=== PATIENT | female | born 1980 | race Caucasian/White ===

== ENCOUNTER 2018-06-14 20:00 | Inpatient (IN) | payer BC ==
[2018-06-14] MEDS ORDERED: EPSOM SALT 454 GM TP PRN (20:58)
[2018-06-14] MEDS ORDERED: LIDOCAINE 1% 300 MG/30 ML SDV SC PRN (20:58)
[2018-06-14] MEDS ORDERED: OLIVE OIL 118 ML BTL MISC PRN (20:58)
[2018-06-14] MEDS ORDERED: OXYTOCIN/RINGERS LACTATE 1,000 ML IV PRN (20:58)
[2018-06-14] MEDS ORDERED: IBUPROFEN 600 MG TAB PO PRN (20:58)
[2018-06-14] MEDS ORDERED: TERBUTALINE SULFATE 1 MG/ML VIAL IV PRN (20:58)
[2018-06-14] MEDS ORDERED: MISOPROSTOL 200 MCG TAB PO PRN (20:58)
[2018-06-14] MEDS ORDERED: AMMONIA AROMATIC 1 EACH AMP IH PRN (20:58)
[2018-06-14] MEDS ORDERED: PENICILLIN G POTASSIUM 5,000,000 UNIT in D5W 150 ML IV ONE (21:00)
[2018-06-14] MEDS ORDERED: OLIVE OIL 118 ML BTL MISC ONE (21:21)
[2018-06-14] MEDS ORDERED: LIDOCAINE 1% 300 MG/30 ML SDV ONE (21:21)
[2018-06-14] MEDS ORDERED: OXYTOCIN 10 UNIT/ML VIAL ONE (21:22)
[2018-06-14] MEDS ORDERED: AMMONIA AROMATIC 1 EACH AMP IH ONE (21:22)
[2018-06-14] MEDS ORDERED: MISOPROSTOL 200 MCG TAB ONE (21:22)
[2018-06-14] MEDS ORDERED: TERBUTALINE SULFATE 1 MG/ML VIAL ONE (21:22)
[2018-06-14] MEDS: MISOPROSTOL 50 MCG CAP PO SCH (21:25)
[2018-06-14 21:56] LABS: PLATELET COUNT 188 10^3/uL (150-400)
--- NOTE | 2018-06-14 22:12 | PDGENHP ---
History and Physical History and Physical: CARE: [facility] HPI: Patient is a 37 yo G 1 P 0 @ 41.2 weeks who presents to L&D for induction of labor, had cook catheter placed this morning in office. EDC: 06/05/18 which is based on LMP: 08/30/18 which is known and consistent with Ultrasound at 8 weeks. Her is complicated by: AMA, normal level 2 and NIPT Review of Systems: Constitutional: Denies any fever, chills, or fatigue HEENT: denies any visual changes, difficulty swallowing, hearing loss Cardiovascular: Denies any chest pain, palpitations, leg swelling Respiratory: denies any cough, wheezing, or shortness of breathe GI: Denies any nausea, vomiting, diarrhea, constipation : denies any dysuria, urgency, frequency, vaginal bleeding Musculoskeletal: denies any muscle or bone pain Skin: denies any rashes Neuro: denies any headache, seizures, lightheadedness, dizziness, or loss of consciousness Psychiatric: denies any depression, anxiety, or SI/HI thoughts HISTORY: Previous OB history: or 6#12oz girl in 2017 Social history: , athlete Family history: non-contributory Past medical history: denies Past surgical history: cholecystectomy 2010, oral surgery 2003 Medications: PNV, probiotic Allergies (list reaction): NKDA LABS: Rh: A+ ABS: Neg Rubella: Immune HbsAg: NR HIV: NR VDRL: NR 1hr: 125 GC: Neg Chlamydia: Neg Pap: Normal GBS: pos BMI: (prepreg) 20 PHYSICAL EXAM: Constitutional: WN, A&Ox3 HEENT: normocephalic atraumatic, supple Heart: RRR, no murmur Chest: CTA-B Skin: warm, dry, intact Abdomen: Soft, nontender, gravid SVE: 1/75/-2 in office today Extremities: trace edema, negative homans sign Neuro: grossly normal Psych: normal affect assessment: FHT baseline 130, +accels, no decels, moderate variability Contractions: toco q 5-10 min Assessment: 1) 37 yo G 1 P 0 with IUP@ 41 weeks and 2 days 2) spontaneous labor 3) GBS pos 4) Cat 1 FHR tracing Plan: 1) Admit to L&D 2) Labor Induction 3) Antibiotic therapy for GBS 4) Anticipate
[2018-06-15] MEDS: MISOPROSTOL 50 MCG CAP PO SCH ×2 (01:28→05:26)
--- NOTE | 2018-06-15 07:57 | OBPROG ---
Labor Progress Note Assessment/Plan: Assessment: 41 week induction of labor Plan: accupuncture pitocin augmentation 06/15/18 07:51 Subjective/Intrapartum Course: 06/15/18 07:54 Pt states bulb is in vagina. Bulb deflated and removed. pt is 3/90/-1. talking and smiling with contractions. movie producer at bedside. Objective: 06/14/18 21:40 Patient ABO/Rh A POSITIVE 06/14/18 21:40 VSS, afebrile - SVE Dilation (cm): 3 Effacement (%): 90 Station: -1 Membranes: Intact - Contraction Pattern Assessment Current Contraction Pattern: Irregular - FHR Assessment Joseph FHR (bpm): 130 FHR Pattern Variability: Moderate FHR Category: 1 Oxytocin Orders Assessment - Pre-Induction/Augmentation Assessment Gestational Age: 41 week(s) and 2 day(s) ICD10 Worksheet Patient Problems: Problems Problem Status Onset Encounter for induction of labor Acute with 41 completed weeks gestation Acute - ICD10 Problem Qualifiers (1) Encounter for induction of labor
--- NOTE | 2018-06-15 08:29 | SOAPPROG ---
SOAP Progress Note Assessment/Plan: Assessment: Digna is talking comfortably, ambulating, and in good spirits. 3cm dilated. 90% effaced. 7 min apart last night, every few min now Plan: Stim labor. 06/15/18 08:25 Objective: DILATED TO 3 BEFORE ACUPUNCTURE. AFTER ACUPUNCTURE, GROUT MACHINE TENDER CHECKED CERVIX - DILATED TO 5.5 OUTER OS, 2.5 INNER OS Laboratory Results 06/14/18 21:40 - Time Spent With Patient Time Spent With Patient: UB32 FOR BACK LABOR AND POSITION UB67 POSITION LI4--SP6 ESTIM 2/200 JOSÉ TO ENCOURAGE LABOR PM08--CJ9 LOWER UTERUS (ESTIM 2/200) DU YIN - ENHANCE LABOR EAR: UT, POSTERIOR PITUITARY, ENDOCRINE ST36 - DIGESTION, ENERGY GB21 - DESCEND QI NEEDLE RETENTION 1.5 HOUR ICD10 Worksheet Patient Problems: Problems Problem Status Onset Encounter for induction of labor Acute with 41 completed weeks gestation Acute
--- NOTE | 2018-06-15 09:00 | OBPROG ---
Labor Progress Note Assessment/Plan: Assessment: 37yo with IUP@ 41-3wks PD IOL GBS + Cat 1 FHR tracing Plan: reassess at approx 10am cytotec 25mcg or replace cook with pitocin pain management PRN Subjective/Intrapartum Course: 06/15/18 07:54 Pt states bulb is in vagina. Bulb deflated and removed. pt is 3/90/-1. talking and smiling with contractions. cereal miller at bedside. 06/15/18 09:00 Pt doing ok- having acupuncture at this time. She denies any pain or contractions. Denies any LOF, having small amount of bloody show since balloon out. FOB and cereal miller @BS. Objective: 06/14/18 21:40 Patient ABO/Rh A POSITIVE 06/14/18 21:40 - SVE Dilation (cm): 3 Effacement (%): 80 Station: -2 Membranes: Intact - Contraction Pattern Assessment Current Contraction Pattern: Irregular Oxytocin Orders Assessment - Pre-Induction/Augmentation Assessment Gestational Age: 41 week(s) and 2 day(s) ICD10 Worksheet Patient Problems: Problems Problem Status Onset Encounter for induction of labor Acute with 41 completed weeks gestation Acute
[2018-06-15] MEDS ORDERED: PENICILLIN G POTASSIUM 5,000,000 UNIT in D5W 150 ML IV ONE (09:30)
[2018-06-15] MEDS ORDERED: OXYTOCIN/RINGERS LACTATE 500 ML IV SCH ×2 (11:00)
[2018-06-15] MEDS: LR 1,000 ML IV PRN ×2 (11:31→21:01)
--- NOTE | 2018-06-15 14:06 | OBPROG ---
Labor Progress Note Assessment/Plan: Assessment: 37yo with IUP@ 41-3wks PD IOL GBS + Cat 1 FHR tracing Plan: cook placed with 60mL in uterine balllon will start pitocin at this time reassess 2-4hr/PRN pain management per pt request 06/15/18 10:45 Subjective/Intrapartum Course: 06/15/18 07:54 Pt states bulb is in vagina. Bulb deflated and removed. pt is 3/-1. talking and smiling with contractions. land reclamation specialist at bedside. 06/15/18 09:00 Pt doing ok- having acupuncture at this time. She denies any pain or contractions. Denies any LOF, having small amount of bloody show since balloon out. FOB and land reclamation specialist @BS. Objective: 06/14/18 21:40 Patient ABO/Rh A POSITIVE 06/14/18 21:40 - SVE Dilation (cm): 3 Effacement (%): 80 Station: -2 Membranes: Intact - Contraction Pattern Assessment Current Contraction Pattern: Irregular - Procedures Non-surgical Procedures: Other (Specify) (cook placed with 60mL in uterine balloon, ) Oxytocin Orders Assessment - Pre-Induction/Augmentation Assessment Gestational Age: 41 week(s) and 2 day(s) ICD10 Worksheet Patient Problems: Problems Problem Status Onset Encounter for induction of labor Acute with 41 completed weeks gestation Acute
--- NOTE | 2018-06-15 14:06 | OBPROG ---
Labor Progress Note Assessment/Plan: Assessment: 37yo with IUP@ 41-3wks PD IOL GBS + Cat 1 FHR tracing pitocin IOL Plan: cont pitocin consider hydrotherapy pain management PRN reassess PRN Subjective/Intrapartum Course: 06/15/18 07:54 Pt states bulb is in vagina. Bulb deflated and removed. pt is 3/90/-1. talking and smiling with contractions. fancy packer at bedside. 06/15/18 09:00 Pt doing ok- having acupuncture at this time. She denies any pain or contractions. Denies any LOF, having small amount of bloody show since balloon out. FOB and fancy packer @BS. 06/15/18 14:10 Pt doing well, she is breathing through contractions. she is ambulating in halls with fancy packer and her mom. she declines any pain relief at this time. Objective: 06/14/18 21:40 Patient ABO/Rh A POSITIVE 06/14/18 21:40 - SVE Membranes: Intact - Contraction Pattern Assessment Current Contraction Pattern: Irregular - FHR Assessment Joseph FHR (bpm): 140 FHR Pattern Variability: Moderate FHR Category: 1 - Procedures Non-surgical Procedures: Other (Specify) (cook placed with 60mL in uterine balloon, ) Oxytocin Orders Assessment - Pre-Induction/Augmentation Assessment Gestational Age: 41 week(s) and 2 day(s) ICD10 Worksheet Patient Problems: Problems Problem Status Onset Encounter for induction of labor Acute with 41 completed weeks gestation Acute
[2018-06-15] MEDS: PENICILLIN G POTASSIUM 2,500,000 UNIT in D5W 150 ML IV SCH ×3 (15:29→23:45)
[2018-06-15] MEDS ORDERED: BUPIVACAINE 0.25% 10 ML SDV ONE ×3 (16:18→21:54)
[2018-06-15] MEDS ORDERED: fentaNYL 2MCG/ML/BUP 0.1% RTU 100 ML BAG EP ONE (16:54)
[2018-06-15] MEDS ORDERED: fentaNYL 2MCG/ML/BUP 0.1% RTU 100 ML EP SCH (17:00)
--- NOTE | 2018-06-15 17:38 | PDANEPAE ---
ANE Past Medical History - Cardiovascular History Hx Hypertension: No Hx Arrhythmias: No Hx Chest Pain: No - Pulmonary History Hx COPD: No Hx Asthma/Reactive Airway Disease: No Hx Recent Upper Respiratory Infection: No Hx Sleep Apnea: No - Neurologic History Hx Cerebrovascular Accident: No - Endocrine History Hx Diabetes: No - Renal History Hx Renal Disorders: No - Liver History Hx Hepatic Disorders: No - Neurological & Psychiatric Hx Hx Neurological and Psychiatric Disorders: No - Cancer History Hx Cancer: No - Congenital Disorder History Hx Congenital Disorders: No ANE Review of Systems Review of Systems: ANE Patient History - Allergies Allergies/Adverse Reactions: No Known Allergies Allergy (Unverified 06/14/18 20:56) - Home Medications Home Medications: [place] 3 500 Softgel 06/14/18 [Last Taken 06/13/18] Dha 1 tab PO DAILY 06/14/18 [Last Taken 06/13/18] Choline Citrate 06/15/18 [Last Taken 06/13/18] FOLIC ACID 06/15/18 [Last Taken 06/13/18] - Smoking Hx Smoking Status: Never smoked ANE Labs/Vital Signs - Labs Result Diagrams: 06/14/18 21:40 - Vital Signs Height: 170.18 cm Weight: 70.307 kg ANE Physical Exam - Airway Mallampati Score: Class 2 Mouth exam: normal dental/mouth exam - Pulmonary Pulmonary: no respiratory distress, no rales or rhonchi, clear to auscultation - Cardiovascular Cardiovascular: regular rate and rhythym, no murmur, rub, or gallop - ASA Status ASA Status: II, E ANE Anesthesia Plan Anesthesia Plan: epidural
--- NOTE | 2018-06-15 17:58 | OBPROG ---
Labor Progress Note Assessment/Plan: Assessment: 37yo with IUP@ 41-3wks PD IOL GBS + Cat 1 FHR tracing pitocin IOL Plan: cont pitocin pt requesting LOS for pain relief Subjective/Intrapartum Course: 06/15/18 07:54 Pt states bulb is in vagina. Bulb deflated and removed. pt is 3/90/-1. talking and smiling with contractions. sheeter operator at bedside. 06/15/18 09:00 Pt doing ok- having acupuncture at this time. She denies any pain or contractions. Denies any LOF, having small amount of bloody show since balloon out. FOB and sheeter operator @BS. 06/15/18 14:10 Pt doing well, she is breathing through contractions. she is ambulating in halls with sheeter operator and her mom. she declines any pain relief at this time. 06/15/18 16:10 Pt doing well, she is breathing through contractions. She is requesting LOS for pain relief. sheeter operator and Family @ BS, supportive. Objective: 06/14/18 21:40 Patient ABO/Rh A POSITIVE 06/14/18 21:40 - SVE Dilation (cm): 5 Effacement (%): 80 Station: -2 Membranes: SROM Amniotic Fluid Color: Clear - Contraction Pattern Assessment Current Contraction Pattern: Irregular - FHR Assessment Joseph FHR (bpm): 135 FHR Pattern Variability: Moderate FHR Category: 1 - Procedures Non-surgical Procedures: Other (Specify) (cook placed with 60mL in uterine balloon, ) Oxytocin Orders Assessment - Pre-Induction/Augmentation Assessment Gestational Age: 41 week(s) and 2 day(s) ICD10 Worksheet Patient Problems: Problems Problem Status Onset Encounter for induction of labor Acute with 41 completed weeks gestation Acute
--- NOTE | 2018-06-15 18:02 | OBPROG ---
Labor Progress Note Assessment/Plan: Assessment: 37yo with IUP@ 41-3wks PD IOL GBS + Cat 1 FHR tracing pitocin IOL LOS in place Plan: cont pitocin have anesthesia evaluate LOS due to right sided pain consider IUPC placement once comfortable reassess 2hr/PRN Subjective/Intrapartum Course: 06/15/18 07:54 Pt states bulb is in vagina. Bulb deflated and removed. pt is 3/90/-1. talking and smiling with contractions. lay out helper at bedside. 06/15/18 09:00 Pt doing ok- having acupuncture at this time. She denies any pain or contractions. Denies any LOF, having small amount of bloody show since balloon out. FOB and lay out helper @BS. 06/15/18 14:10 Pt doing well, she is breathing through contractions. she is ambulating in halls with lay out helper and her mom. she declines any pain relief at this time. 06/15/18 16:10 Pt doing well, she is breathing through contractions. She is requesting LOS for pain relief. lay out helper and Family @ BS, supportive. 06/15/18 18:00 Pt doing ok- she reports pain still persistent on right side, despite laying in right tilt. She has hit LOS bolus button with little relief. She states overall better but definitely still breathing through the contractions. She had episode of vomiting- states she feels better now.family and lay out helper @ BS and supportive. Objective: 06/14/18 21:40 Patient ABO/Rh A POSITIVE 06/14/18 21:40 - SVE Dilation (cm): 5 Effacement (%): 80 Station: -1 Membranes: SROM Amniotic Fluid Color: Clear - Contraction Pattern Assessment Current Contraction Pattern: Irregular - FHR Assessment Joseph FHR (bpm): 145 (variables noted) FHR Pattern Variability: Moderate FHR Category: 2 - Procedures Non-surgical Procedures: Other (Specify) (cook placed with 60mL in uterine balloon, ) Oxytocin Orders Assessment - Pre-Induction/Augmentation Assessment Gestational Age: 41 week(s) and 2 day(s) ICD10 Worksheet Patient Problems: Problems Problem Status Onset Encounter for induction of labor Acute with 41 completed weeks gestation Acute
[2018-06-15] MEDS ORDERED: ONDANSETRON 4 MG/2 ML VIAL ONE (22:48)
[2018-06-16] MEDS ORDERED: ONDANSETRON 4 MG/2 ML VIAL IVP PRN (00:39)
--- NOTE | 2018-06-16 00:39 | OBDEL ---
Info Type: Vaginal Presentation at Delivery: Vertex L&D Analgesia/Anesthesia Type: Epidural GBS+: Yes Intrapartum Medications: Generic Name Dose Route Start Last Admin Trade Name Freq PRN Reason Stop Dose Admin Penicillin G Potassium 2,500, 155 mls @ 155 mls/hr 06/15/18 13:30 06/15/18 23 :45 000 unit/ Dextrose IV 07/15/18 13:29 155 mls Q4H GENARO Administration Protocol Oxytocin/Lactated Ringer's 500 mls @ 0 mls/hr 06/15/18 11:00 06/15/18 11:31 Pitocin 30 Units/Lr (Premix) IV 12/12/18 10:59 500 mls CONT GENARO Administration Protocol Per Protocol Misoprostol 50 mcg 06/14/18 21:15 06/15/18 05:26 Cytotec PO 06/17/18 21:16 50 mcg PRN GENARO Administration Discontinued Medications Generic Name Dose Route Start Last Admin Trade Name Freq PRN Reason Stop Dose Admin Lactated Ringer's 1,000 mls @ 0 mls/hr 06/14/18 20:58 06/15/18 21:01 Lr IV 06/15/18 20:57 1,000 mls PRN PRN Administration SEE PROTOCOL CONDITIONS Protocol Per Protocol Penicillin G Potassium 5,000, 160 mls @ 160 mls/hr 06/14/18 21:00 06/15/18 09 :24 000 unit/ Dextrose IV 06/14/18 21:59 Not Given ONCE ONE Protocol Penicillin G Potassium 5,000, 160 mls @ 160 mls/hr 06/15/18 09:30 06/15/18 11 :31 000 unit/ Dextrose IV 06/15/18 10:29 160 mls ONCE ONE Administration Protocol - Hospital Course Intrapartum: 06/15/18 07:54 Pt states bulb is in vagina. Bulb deflated and removed. pt is 3/90/-1. talking and smiling with contractions. sports announcer at bedside. 06/15/18 09:00 Pt doing ok- having acupuncture at this time. She denies any pain or contractions. Denies any LOF, having small amount of bloody show since balloon out. FOB and sports announcer @BS. 06/15/18 14:10 Pt doing well, she is breathing through contractions. she is ambulating in halls with sports announcer and her mom. she declines any pain relief at this time. 06/15/18 16:10 Pt doing well, she is breathing through contractions. She is requesting LOS for pain relief. Bola @ BS, supportive. 06/15/18 18:00 Pt doing ok- she reports pain still persistent on right side, despite laying in right tilt. She has hit LOS bolus button with little relief. She states overall better but definitely still breathing through the contractions. She had episode of vomiting- states she feels better now. @ BS and supportive. Indications for Delivery: Postterm Unfavorable Cervix Vaginal Delivery - Delivery Provider Delivery Physician/CNM: Shaneka Tanner - Labor and Delivery Onset of Contractions Date: 06/15/18 Onset of Contractions Time: 15:00 Onset of Contractions Type: Induced Rupture of Membranes Date: 06/15/18 Rupture of Membranes Time: 15:16 Rupture of Membranes Type: Spontaneous Amniotic Fluid Color: Clear Dilation Complete Date: 06/15/18 Dilation Complete Time: 23:27 Placenta Delivery Date: 06/16/18 Placenta Delivery Time: 00:15 Total Hours of Labor: 9 Non-surgical Procedures: IUPC, Other (Specify) (cook placed with 60mL in uterine balloon, ) Laceration: 1st Degree Repair: 3-0, Vicryl Vaginal Sponge Count Correct: Yes Vaginal Needle Count Correct: Yes Vaginal Sweep Performed: Yes EBL: 200 Delivery Events: Other (Specify) (tight cord around right ankle) - Medications Labor Augmentation/Induction Methods Used: Pitocin, Misoprostol, Luo Bulb Labor Augmentation/Induction Indication: Post Dates [place] Data DOMINGO: 06/05/18 Gestational Age: 41 week(s) and 4 day(s) Joseph Delivery Date: 06/16/18 Delivery Time: 00:03 Sex of : Male Score (1 Min): 8 Score (5 Min): 9 ICD10 Worksheet Patient Problems: Problems Problem Status Onset Encounter for induction of labor Acute with 41 completed weeks gestation Acute (spontaneous vaginal delivery) Acute - ICD10 Problem Qualifiers (1) (spontaneous vaginal delivery)
[2018-06-16] MEDS ORDERED: SIMETHICONE 80 MG TAB CHEW PO PRN (00:42)
[2018-06-16] MEDS ORDERED: HYDROCORTISONE 0.5% CREAM TP PRN (00:42)
[2018-06-16] MEDS ORDERED: ACETAMINOPHEN 325 MG TAB PO PRN (00:42)
[2018-06-16] MEDS: IBUPROFEN 600 MG TAB PO PRN ×4 (00:57→20:19)
[2018-06-16] MEDS ORDERED: OXYTOCIN/RINGERS LACTATE 1,000 ML IV SCH (01:00)
[2018-06-16] MEDS: DOCUSATE SODIUM 100 MG CAP PO PRN (07:10)
--- NOTE | 2018-06-16 08:46 | POSTANESTH ---
Post Anesthetic Evaluation Cardiovascular Status: Normal, Stable Respiratory Status: Normal, Stable Level of Consciousness/Mental Status: Can Participate in Eval Pain Control: Adequate, Prn Tx Ordered Nausea/Vomiting Control: Adequate, Prn Tx Ordered Complications Possibly Related to Anesthesia: None Noted (happy with LOS, no adverse effects, mild soreness at site)
--- NOTE | 2018-06-16 09:01 | OBPP ---
Progress Note Assessment/Plan: Assessment: 37yo s/p PPD#0 Plan: routine PP care ambulate/hydrate support PRN anticipate d/c home approx 48hours Subjective/ Course: 06/16/18 08:59 pt doing well, she is happy. feeling good, slept maybe an hour this morning. plans to eat and rest today. denies any heavy bleeding or pain. FOB @ BS and supportive. Objective: 06/14/18 21:40 Patient ABO/Rh A POSITIVE 06/14/18 21:40 Temp Pulse Resp BP Pulse Ox 36.9 C 70 16 101/61 95 06/16/18 03:41 06/16/18 03:41 06/16/18 03:41 06/16/18 03:41 06/16/18 03:41 Uterine Position/Fundal Height: Umbilicus -1, Midline Uterine Tone: Firm
[2018-06-17] MEDS: IBUPROFEN 600 MG TAB PO PRN ×2 (05:12→11:17)
[2018-06-17] MEDS: DOCUSATE SODIUM 100 MG CAP PO PRN (07:46)
[2018-06-17 08:06] VITALS: BP 101/73
--- NOTE | 2018-06-17 11:52 | OBGCSDC ---
General Delivery Information - General Info : 1 Para: 1 Abortions: 0 Type: Vaginal L&D Analgesia/Anesthesia Type: Epidural, Nitrous Admission Date: 06/14/18 Labs: Patient ABO/Rh A POSITIVE 06/14/18 21:40 Hct 39.8 % (38.0-47.0) 06/14/18 21:40 - Hospital Course Intrapartum: 06/15/18 07:54 Pt states bulb is in vagina. Bulb deflated and removed. pt is 3/-1. talking and smiling with contractions. still operator gin at bedside. 06/15/18 09:00 Pt doing ok- having acupuncture at this time. She denies any pain or contractions. Denies any LOF, having small amount of bloody show since balloon out. FOB and still operator gin @BS. 06/15/18 14:10 Pt doing well, she is breathing through contractions. she is ambulating in halls with still operator gin and her mom. she declines any pain relief at this time. 06/15/18 16:10 Pt doing well, she is breathing through contractions. She is requesting LOS for pain relief. still operator gin and Family @ BS, supportive. 06/15/18 18:00 Pt doing ok- she reports pain still persistent on right side, despite laying in right tilt. She has hit LOS bolus button with little relief. She states overall better but definitely still breathing through the contractions. She had episode of vomiting- states she feels better now.family and still operator gin @ BS and supportive. : 06/16/18 08:59 pt doing well, she is happy. feeling good, slept maybe an hour this morning. plans to eat and rest today. denies any heavy bleeding or pain. FOB @ BS and supportive. 06/17/18 16:19 S) Pt doing well, reports min pain and bleeding. she is ambulating and voiding without difficulty. She is . She desires discharge home today. O) VSS, afebrile constitutional: WNWF, A&Ox3 HEENT: normocephalic, atraumatic, supple Heart: RRR, No murmur Chest: CTA-B Abdomen: Soft, nontender Uterus: Firm at U-2 Lochia: Minimal rubra Perineum: Intact, healing well Extremities: Trace edema, and negative Robert's sign Neuro: Grossly normal A) 37 year-old P1 S/P PPD#1 P) Discharge home today Continue Pelvic rest x6wks Discussed danger signs (infection, preeclampsia, depression, heavy bleeding, etc) RTO in 2/4/6 weeks Vaginal - Delivery Provider Delivery Physician/CNM: Shaneka Tanner - Diagnosis Labor: Induced Rupture of Membranes Type: Spontaneous Amniotic Fluid Color: Clear Laceration: 1st Degree Repair: 3-0, Vicryl Delivery Events: Other (Specify) (tight cord around right ankle) - Procedures Non-surgical Procedures: IUPC, Other (Specify) (cook placed with 60mL in uterine balloon, ) - Delivery Non-surgical Procedures: IUPC, Other (Specify) (cook placed with 60mL in uterine balloon, ) EBL: 200 [place] Data DOMINGO: 06/05/18 Gestational Age: 41 week(s) and 5 day(s) Joseph Delivery Date: 06/16/18 Delivery Time: 00:03 Sex of : Male [place] Weight (gm): 3225 g Score (1 Min): 8 Score (5 Min): 9 Discharge Information - Discharge Information Condition: Good Instruction/Follow Up: Two Weeks, Four Weeks, Six Weeks
== END 2018-06-17 13:15 | disposition home or self-care (01) | DRG 807 ==
LOC: FLD 20:28 → FOB 06-16 05:39
PROVIDERS: ADMIT Advanced Practice Midwife; ATTEND Advanced Practice Midwife
DX: O48.0 Post-term pregnancy (principal); O70.0 First degree perineal laceration during delivery; O99.820 Streptococcus B carrier state complicating pregnancy; O69.2XX0 Labor and delivery complicated by other cord entanglement, with compression, not applicable or unspecified; Z3A.41 41 weeks gestation of pregnancy; Z37.0 Single live birth
CPT/HCPCS: J2405; J2540; J2590; J3105